=== PATIENT | female | born 1990 | race Caucasian/White ===

== ENCOUNTER 2023-02-22 10:55 | Emergency (ER) | payer OTHER, SELFPAY ==
--- NOTE | ~2023-02-22 | XR_ITS ---
EXAMINATION: XR CHEST CLINICAL INFORMATION: Dizziness COMPARISON: None available. TECHNIQUE: 2 views of the chest were obtained. FINDINGS: The cardiac and mediastinal contours are normal. The lungs are well-inflated. The lungs are clear. No pleural effusion or pneumothorax. Normal bony structures. XR/XR chest 2V IMPRESSION: Well-inflated lungs.
[2023-02-22 11:11] VITALS: BP 105/51; BP 105/61; PULSE 78; PULSE 81; RESP 16; TEMP 36.8; O2SAT 100; BMI 15.0
--- NOTE | 2023-02-22 11:50 | ECG_ITS ---
Test Reason : DIZZINESS Blood Pressure : / mmHG Vent. Rate : 071 BPM Atrial Rate : 071 BPM P-R Int : 146 ms QRS Dur : 082 ms QT Int : 394 ms P-R-T Axes : 076 084 060 degrees QTc Int : 428 ms Normal sinus rhythm with sinus arrhythmia Normal ECG No previous ECGs available Referred By: Yousif Caal Electronically Signed By:MIRIAM DUQUE
--- NOTE | 2023-02-22 12:01 | ED_ITS ---
HPI - Dizziness General Chief Complaint: Dizziness Stated Complaint: DIZZY,FELT FAINT,LOW BP 87/50 PER EMS Time Seen by Provider: 02/22/23 11:41 Source: patient Mode of arrival: ambulatory Limitations: no limitations History of Present Illness HPI Narrative: 32-year-old female otherwise healthy no previous visits to this emergency department presents emergency department after feeling lightheaded. She states she is currently on her menses. She states that when she is on her menses she does get lightheaded she had the same problem last month she has been on control in the past. She denies any falls or injuries she denies losing consciousness she admits to not eating as much she normally does this morning she denies chest pain cough fever and she states she is back to her baseline at this time. It is very warm she states she is doing outside event today. When this all happened. MD elicited complaint: near syncope Related Data Allergies Allergy/AdvReac Type Severity Reaction Status Date / Time No Known Allergies Allergy Unverified 02/29/20 18:12 Review of Systems 2 Review of Systems: Review of systems: General: Patient denies any fever chills recent illness or falls Musculoskeletal: Denies back pain or body aches or other injuries HEENT: denies headache, runny nose, ear pain Respiratory: denies shortness of breath, cough Cardiovascular: no chest pain or palpitations : denies dysuria, frequency Abdomen: no nausea vomiting denies abdominal pain Extremities: no swelling, no pain Skin: no diaphoresis Yes all other systems are reviewed and are negative PMFSH Social History Social History Alcohol intake: never Smoked in Last 30 Days: No Use of substances other than those prescribed or required for medical reasons: No Advance Directives: No Advance Directives Information Provided: No Patient : No Physical Exam 2 Vital Signs: Vital Signs: Last Vital Signs Temp 98.2 F 02/22/23 11:11 Pulse 81 02/22/23 11:11 Resp 16 02/22/23 11:11 BP 105/61 02/22/23 11:11 Pulse Ox 100 02/22/23 11:11 O2 Del Method Room Air 02/22/23 11:11 BMI result Body Mass Index 15.0 Neurological exam: CN II- XII tested. Patient is alert and oriented to person place and time. Patient has no dysphagia or dysarthia, denies good vision in all four vision parker no nystagmus on exam, good strength to upper and lower extremities with normal reflexes to brachioradialis, wrist, patella and achilles. Negative romberg, good finger to nose and heel to black. General: Well-appearing well-nourished in no signs of distress HEENT: Normocephalic atraumatic Neck: No signs of JVD, no masses no tenderness or lymphadenopathy Cardiovascular: Regular rate and rhythm Respiratory: Clear to auscultation bilaterally Abdomen: Soft nontender no masses Extremities: Normal pedal pulses no signs of edema Skin: Dry warm no rashes Back: No tenderness full ROM Course Course Course Narrative: Patient continues to appear well labs are normal patient given a L of fluid here and was also benign I will send home with PCP follow-up. Medications Administered Discontinued Medications Generic Name Dose Route Start Last Admin Trade Name Freq PRN Reason Stop Dose Admin Sodium Chloride 1,000 mls @ 999 mls/hr 02/22/23 12:00 02/22/23 13:19 Ns IV 02/22/23 13:00 0 mls/hr .Q1H1M [facility] Infusion Medical Decision Making Medical Decision Making [facility] Narrative: Patient is here for nursing patient lose consciousness I will check some labs and reassess. Patient screened to take her status needs to be checked I will check his CBC BMP give patient fluids and reassess Differential Diagnosis Differential Diagnoses: The differential diagnosis associated with the presentation includes Syncope electrolyte abnormality dysrhythmia less likely any neuro symptoms patient is currently admits is doing she is . Admission/Observation Consideration of admission/observation: Escalation of care including admission/observation considered Lab Data [facility] Lab Attestation statement: I reviewed the patient's lab results. 02/22/23 12:03 02/22/23 12:03 Labs: Lab Results 02/22/23 Range/Units 12:03 WBC 14.0 H (4.8-10.8) X10*3/uL RBC 3.87 L (4.20-5.50) X10*6/uL Hgb 13.2 (12.0-16.0) g/dl Hct 38.7 (37.0-47.0) % MCV 100.0 H (80.0-98.0) fL MCH 34.1 H (27.0-33.0) pg MCHC 34.1 (31.0-35.0) g/dl RDW 11.8 (11.0-16.0) % Plt Count 299 (160-400) X10*3/uL MPV 9.5 (9.4-12.3) fL Immature Gran % (Auto) 0.4 (0.0-0.4) % Neut % (Auto) 83.6 H (45-73) % Lymph % (Auto) 8.1 L (20-40) % [place] % (Auto) 6.9 (2-11) % Eos % (Auto) 0.4 (0-4) % Baso % (Auto) 0.6 (0-2) % Lymph # (Auto) 1.1 L (1.2-4.9) X10*3/uL [place] # (Auto) 1.0 (0.1-1.2) X10*3/uL Eos # (Auto) 0.1 (0.0-0.4) X10*3/uL Baso # (Auto) 0.1 (0.0-0.2) X10*3/uL Abs Immat Gran (auto) 0.05 H (0.00-0.03) X10*3/uL Absolute Neuts (auto) 11.7 H (2.0-8.3) x10*3/uL Absolute Nucleated RBC 0.000 (0.0-0.012) X10*3/uL Nucleated RBC % (auto) 0.0 (0.0-0.2) /100WBC Sodium 140 (135-145) mmol/L Potassium 3.7 (3.3-5.1) mmol/L Chloride 110 H (96-108) mmol/L Carbon Dioxide 25 (22-29) mmol/L Anion Gap 9 L (12-20) BUN 11 (9-16) mg/dL Creatinine 0.70 (0.5-1.4) mg/dL Estim Creat Clear Calc 73.6 Estimated GFR > 60 Random Glucose 97 (60-115) mg/dL Calcium 9.7 (8.4-10.2) mg/dL Total Bilirubin 0.5 (0.0-1.0) mg/dL Direct Bilirubin 0.2 (0.0-0.5) mg/dL AST 19 (5-31) U/L ALT 14 (0-31) U/L Alkaline Phosphatase 44 (39-117) U/L Total Protein 6.5 (6.5-8.0) g/dL Albumin 4.0 (3.5-5.0) g/dL Lipase 29 (8-78) U/L Independent Interpretation I performed an independent interpretation of an: EKG and Plain X-Ray Radiology Impression Discussion of test interpretation with radiology: I have reviewed the radiologist's reading. Independent Historian Clinical information obtained from an independent historian. History obtained from or confirmed by: Parent External Record Review No previous records to review Discharge Plan Discharge Clinical Impression: Near syncope Patient Disposition: Home, Self-Care Instructions: Near Syncope (ED) Additional Instructions: You were seen today in emergency department for almost passing out. You had labs and x-ray as well as an EKG which were all normal. If you have worsening chest pain shortness of breath fever or any other concerns please do not hesitate to come back to the emergency department.
[2023-02-22 12:09] LABS: MANUAL DIFF FLAG NO
[2023-02-22 12:11] LABS: Basophils Absolute Auto 0.1 X10*3/uL (0.0-0.2); Basophils Percent Auto 0.6 % (0-2); Eosinophils Absolute Auto 0.1 X10*3/uL (0.0-0.4); Eosinophils Percent Auto 0.4 % (0-4); Hematocrit 38.7 % (37.0-47.0); Hemoglobin 13.2 g/dl (12.0-16.0); Imm Gran Abs Auto 0.05 X10*3/uL (0.00-0.03); Imm Gran Pct Auto 0.4 % (0.0-0.4); Lymphocytes Absolute Auto 1.1 X10*3/uL (1.2-4.9); Lymphocytes Percent Auto 8.1 % (20-40); Mean Corpuscular HGB Conc 34.1 g/dl (31.0-35.0); Mean Corpuscular Hemoglobin 34.1 pg (27.0-33.0); Mean Platelet Volume 9.5 fL (9.4-12.3); Monocytes Percent Auto 6.9 % (2-11); Neutrophils Absolute Auto 11.7 x10*3/uL (2.0-8.3); Neutrophils Percent Auto 83.6 % (45-73); Platelet Count 299 X10*3/uL (160-400); Red Blood Count 3.87 X10*6/uL (4.20-5.50); Red Cell Distribution Width 11.8 % (11.0-16.0)
[2023-02-22 12:30] LABS: Alanine Aminotransferase 14 U/L (0-31); Alkaline Phosphatase 44 U/L (39-117); Anion Gap 9 (12-20); Aspartate Amino Transferase 19 U/L (5-31); Bilirubin Direct 0.2 mg/dL (0.0-0.5); Bilirubin Total 0.5 mg/dL (0.0-1.0); Blood Urea Nitrogen 11 mg/dL (9-16); Calcium 9.7 mg/dL (8.4-10.2); Carbon Dioxide 25 mmol/L (22-29); Chloride 110 mmol/L (96-108); Creatinine Clr Calc Pharmacy 73.6; Estimated Glomerular Filt Rate > 60; Glucose Random 97 mg/dL (60-115); Lipase 29 U/L (8-78); Potassium 3.7 mmol/L (3.3-5.1); Sodium 140 mmol/L (135-145); Total Protein 6.5 g/dL (6.5-8.0)
[2023-02-22] MEDS: 0.9 % Sodium Chloride 1,000 ML 999 ML IV (12:32)
[2023-02-22 14:08] VITALS: BP 93/55; PULSE 73; RESP 16; O2SAT 100
== END 2023-02-22 14:16 | disposition home or self-care (01) ==
PROVIDERS: Emergency Provider Student in an Organized Health Care Education/Training Program
DX: R55 Syncope and collapse (principal); R42 Dizziness and giddiness; I49.8 Other specified cardiac arrhythmias; Z79.899 Other long term (current) drug therapy
CPT/HCPCS: 36415; 71046; 80048; 80076; 83690; 85025; 93005; 96360; 99284; 99285

== ENCOUNTER 2023-09-02 10:22 | Outpatient (AMB) | payer OTHER, SELFPAY ==
--- NOTE | 2023-09-02 10:25 | A.OFFPC_ITS ---
Vital Signs 09/02/23 10:27 Height 5 ft 6 in Weight 88 lb 2 oz BMI 14.2 BP 123/58 L Blood Pressure Location Rt brachial Position Sitting Respiration 14 Pulse 110 H Pulse Source Pulse Oximeter Temp 97.5 F Temp Source Temporal Artery Scan Pulse Oximetry (%) 99 Oxygen Delivery Method Room Air Intake Visit Reasons: FU ARFID Intake Note: Patient is here for a follow up. No concerns. Patient did not warp picker Fluoxetine, did not start yet Collections Rep Required: No Accompanied by: Self / Same As Patient Allergies No Known Allergies Allergy (Verified 09/02/23 10:49) Medication List - Last Reconciled 09/02/23 by GRANT Baker fluoxetine (Prozac) 10 mg PO DAILY Tobacco use date assessed: 08/20/23 HPI HPI Comments History of Present Illness Details 32 y/o F with MDD, AFUA, ARFID Specialists: Counselor Nutrition referral placed Health Maintenance: Pap reports UTD Here today for close fu: Starts by telling me she felt very on the spot and uncomfortable about the convo regarding my concern for low BMI at last visit. Though she is appreciative wanted me to know that. Explains her wt is low because she has been sick and is very busy at work. Was contacted by Nutrition- [employer] scheduled September 17 2023. Did not warp picker prozac yet. Feels too busy. Doesn't want to get labs done, too busy. Offered to have her get done right now and she declined stating she has to watch the clock and get back to work. Denies SI/HI. Remains active with counselor. [facility] Medical History (Updated 09/02/23 @ 10:58 by GRANT Baker) Anxiety Depression Surgical History (Updated 08/20/23 @ 15:46 by Nikkie Adame CMA) No pertinent past surgical history Family History (Updated 08/20/23 @ 15:47 by Nikkie Adame CMA) Mother Mental health disorder Brother Mental health disorder Social History (Updated 08/20/23 @ 15:44 by Nikkie Adame CMA) Household Members: Family Housing: House 75 years or older and lives alone: No Alcohol intake: never Patient Tobacco Use Status: Never used Tobacco e-Cigarette/Vaping Use: Never Used service: No Current occupational status: employed 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 Depression Screening Interpretation: Positive Depression Screening Follow-up: Existing condition, In treatment and New Medication prescribed Depression Screening Done: Yes Source: Developed by Drs. Michael Marie, Filemon Ko and colleagues, with an educational kuldeep from [employer] Thrive Questionnaire Date Thrive assessed: 08/20/23 Currently or been in a relationship where the following occur: no concerns reported THRIVE Score: 0 AFUA-7 AMB Questionnaire AFUA-7 Date AFUA - 7 assessed: 08/20/23 Source: Developed by Drs. Michael Marie, Gabby Ellis, Filemon Castellanos and colleagues, with an educational kuldeep from [employer] Review of Systems Const All systems reviewed & are unremarkable except as noted in HPI and below Physical exam (Primary Care) Vital Signs: Last Vital Signs Temp 97.5 F 09/02/23 10:27 Pulse 110 H 09/02/23 10:27 Resp 14 09/02/23 10:27 BP 123/58 L 09/02/23 10:27 Pulse Ox 99 09/02/23 10:27 Oxygen Delivery Method Room Air 09/02/23 10:27 BMI result Body Mass Index 14.2 BMI Assessment/Plan discussion: Low BMI Low, Plan discussed: dietary Tobacco/Smoking Status: Tobacco use Status Tobacco use date assessed 08/20/23 09/02/23 10:27 Patient Tobacco Use Status Never used Tobacco 09/02/23 10:27 e-Cigarette/Vaping Use Never Used 09/02/23 10:27 Depression Screening Interpretation: Positive Depression Screening Follow-up: Existing condition, In treatment and New Medication prescribed Thrive Assessment: Date of Thrive Assessment Date Thrive assessed 08/20/23 09/02/23 10:27 Currently or been in a relationship where the following occur: no concerns reported Const Other: Extremely thin and frail Mucous membranes dry Lung sounds clear To auscultation bilat regular rate and rhythm Abdomen is soft nontender bowel sounds within normal limits Mood is guarded & anxious Assessment and Plan Assessment & Plan (1) Avoidant-restrictive food intake disorder (ARFID): Comment: Referred to an eating disorder crop nutrition scientist - [facility]. Initial intake appt 09/17/23 Labs ordered & pending. Encouraged to get done. Already active with a counselor. She would like to proceed with small steps to start working on recovery. We will bring her back in 2-3 week. I have asked for her to make an appointment with a serials librarian and get her blood work done before the next appointment. I have also told her that if she does not feel like she can do these things that she should still come to follow up with me so that I can continue to guidance support her. She was very grateful for having this conversation. Code(s): F50.82 - Avoidant/restrictive food intake disorder (2) MDD (major depressive disorder), recurrent episode: Comment: start of prozac 10 mg QD. Has not picked up yet. Requested she try to make time to do this. Active w/ counselor Code(s): F33.9 - Major depressive disorder, recurrent, unspecified Qualifiers: Major depression episode severity: severe Psychotic features: without psychotic features Qualified Code(s): F33.2 - Major depressive disorder, recurrent severe without psychotic features (3) AFUA (generalized anxiety disorder): Comment: see MDD Code(s): F41.1 - Generalized anxiety disorder Plan: This note is constructed using voice recognition software. While every effort has been made to ensure accuracy in educational therapy teacher, still errors may have been included Sometimes, these errors may affect the content or meaning of the given sentence . Total time spent caring for the patient today was 40 minutes. This includes time spent before the visit reviewing the chart, time spent during the visit, and time spent after the visit on documentation Plan RTO IN 2-3 WEEKS FOR CLOSE F/U, REVIEW OF LABS AND CONSULT W/ EDGE TRIMMING MACHINE OPERATOR Coding Level of Care Code Est Pt Level 5 (11767) Diagnoses Avoidant-restrictive food intake disorder (ARFID) F50.82 Severe episode of recurrent major depressive disorder, without psychotic features F33.2 Major depression episode severity: severe Psychotic features: without psychotic features AFUA (generalized anxiety disorder) F41.1
[2023-09-02 10:27] VITALS: BP 123/58; PULSE 110; RESP 14; TEMP 36.4; O2SAT 99; BMI 14.2
== END 2023-09-02 10:54 | disposition home or self-care (01) ==
PROVIDERS: Visit Provider Nurse Practitioner Family
DX: F50.82 Avoidant/restrictive food intake disorder (principal); F33.2 Major depressive disorder, recurrent severe without psychotic features; F41.1 Generalized anxiety disorder
CPT/HCPCS: 99215

== ENCOUNTER 2023-10-01 11:17 | Outpatient (AMB) | payer OTHER, SELFPAY ==
[2023-10-01 11:41] VITALS: BP 100/40; PULSE 91; O2SAT 98; BMI 14.1
--- NOTE | 2023-10-01 11:41 | MHC.PC.OV ---
Vital Signs 10/01/23 11:41 Height 5 ft 6 in Weight 87 lb 2 oz BMI 14.1 BP 100/40 L Blood Pressure Location Lt brachial Position Sitting Pulse 91 Pulse Source Pulse Oximeter Pulse Oximetry (%) 98 Oxygen Delivery Method Room Air Intake Visit Reasons: fu ARFID/MDD Allergies No Known Allergies Allergy (Verified 10/01/23 11:46) Medication List - Last Reconciled 10/01/23 by Taylor Ken, MEDICAL CLERK-BC fluoxetine (Prozac) 10 mg PO DAILY Tobacco use date assessed: 08/20/23 Dental Screening Dental Screen Date: 08/20/23 HPI HPI Comments History of Present Illness Details Here today to fu. 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 Specifically suicidal thoughts. Admits that she has passive suicidal thoughts without a plan. She remains active with a counselor. Had telephone consult w/ release of information specialist, this was about 2 weeks ago Recommended to start Boost or something like that, states she has not been able to find this. Has appointment next Wednesday with her Had another episode of dysfunctional uterine bleeding having panic attacks at work; to help she worked from home. She has lost weight since her last office visit. The weight recorded today was with a leather jacket shoes and fully dressed. The past that she usually wears which has several layers underneath are falling off of her today and she asked to hold them up. Her lips are dry and cracked. She looks extremely frail and ill. We had a donna conversation about the need for her to enter treatment. Discussed her avoidance in addressing the issues had on and coming up with several reasons why she can not do things such as start medications or get her labs done. Advised to her that with her state of health, which is extreme malnutrition in the setting of anorexia nervosa she does require inpatient treatment. She states that she does not want to as she is afraid of what people will think and she is afraid about losing her job. Discussed FMLA and the jaw protection around there. Today she does not deny that she does have anorexia. She denies any new behaviors such as chewing and spitting, use of diuretics or laxatives, or vomiting. She denies any self-harm. [facility] Medical History (Updated 10/01/23 @ 13:01 by RIGOBERTO Baker) Anxiety Depression Surgical History (Updated 08/20/23 @ 15:46 by Nikkie Adame CMA) No pertinent past surgical history Family History (Updated 08/20/23 @ 15:47 by Nikkie Adame CMA) Mother Mental health disorder Brother Mental health disorder Social History (Updated 08/20/23 @ 15:44 by Nikkie Adame CMA) Household Members: Family Housing: House 75 years or older and lives alone: No Alcohol intake: never Patient Tobacco Use Status: Never used Tobacco e-Cigarette/Vaping Use: Never Used service: No Current occupational status: employed Current occupation: [employer] Current occupational exposures/hazards: No Sexual orientation: Unable to collect Gender identity: Unable to collect Cognitive needs: No Hearing needs: No Vision needs: No Questionnaire PHQ-9 Over the last 2 weeks, how often have you been bothered by any of the following problems? Depression Screening Interpretation: Positive Depression Screening Follow-up: Existing condition, In treatment and New Medication prescribed Depression Screening Done: Yes Source: Developed by Drs. Michael Marie, Filemon Ko and colleagues, with an educational kuldeep from [employer]. Thrive Questionnaire Date Thrive assessed: 08/20/23 Currently or been in a relationship where the following occur: no concerns reported THRIVE Score: 0 AFUA-7 AMB Questionnaire AFUA-7 Date AFUA - 7 assessed: 08/20/23 Source: Developed by Drs. Michael Marie, Filemon Ko and colleagues, with an educational kuldeep from [employer]. Physical exam (Primary Care) Vital Signs: Last Vital Signs Pulse 91 10/01/23 11:41 BP 100/40 L 10/01/23 11:41 Pulse Ox 98 10/01/23 11:41 Oxygen Delivery Method Room Air 10/01/23 11:41 BMI result Body Mass Index 14.1 BMI Assessment/Plan discussion: Low BMI Low, Plan discussed: dietary Tobacco/Smoking Status: Tobacco use Status Tobacco use date assessed 08/20/23 10/01/23 11:42 Patient Tobacco Use Status Never used Tobacco 10/01/23 11:42 e-Cigarette/Vaping Use Never Used 10/01/23 11:42 Depression Screening Interpretation: Positive Depression Screening Follow-up: Existing condition, In treatment and New Medication prescribed Thrive Assessment: Date of Thrive Assessment Date Thrive assessed 08/20/23 10/01/23 11:42 Currently or been in a relationship where the following occur: no concerns reported Const Other: Extremely thin and frail Mucous membranes dry, lips cracked, eyes sunken Lung sounds clear To auscultation bilat regular rate and rhythm Abdomen is soft nontender bowel sounds within normal limits Mood is guarded & anxious Assessment and Plan Assessment & Plan (1) Anorexia nervosa: Comment: Referred to an eating disorder nutrition consultant - [facility]. Initial intake appt 09/17/23 Labs ordered & pending. Encouraged to get done. She refuses. Already active with a counselor. She would like to proceed with small steps to start working on recovery. We will bring her back in 2-3 week. I have asked her to get FMLA paperwork from her employer, call her insurance company to find out in network inpatient eating disorder center's, start her Prozac and drink boost as advised by gi asst. . I have also told her that if she does not feel like she can do these things that she should still come to follow up with me so that I can continue to guidance support her. She was very grateful for having this conversation. Code(s): F50.00 - Anorexia nervosa, unspecified Plan This note is constructed using voice recognition software. While every effort has been made to ensure accuracy in forgeman helper, still errors may have been included Sometimes, these errors may affect the content or meaning of the given sentence . Total time spent caring for the patient today was 90 minutes. This includes time spent before the visit reviewing the chart, time spent during the visit, and time spent after the visit on documentation Upon leaving she had a panic attack. This did require her to return to the exam room where additional 30 minutes was spent consulting her to ensure that she was safe and okay to drive home. She did say that she had a friend that she could call and speak to on her ride back home. Patient Instructions: Ask employer about FMLA and get the forms Call your insurance company and find out which inpatient eating disorder clinics are covered Please start prozac Coding Level of Care Code Est Pt Level 5 (87027) Complex EM visit Add On G2211 Diagnoses Anorexia nervosa F50.00
== END 2023-10-01 12:31 | disposition home or self-care (01) ==
PROVIDERS: Visit Provider Nurse Practitioner Family
DX: F50.00 Anorexia nervosa, unspecified (principal)
CPT/HCPCS: 99215; 99417; G2211

== ENCOUNTER 2023-10-22 15:23 | Outpatient (AMB) | payer OTHER, SELFPAY ==
--- NOTE | 2023-10-22 15:28 | A.OFFPC_ITS ---
Vital Signs 10/22/23 15:29 Height 5 ft 6 in Weight 86 lb BMI 13.9 BP 103/57 L Blood Pressure Location Rt brachial Position Sitting Respiration 12 Pulse 75 Temp 98.7 F Temp Source Oral Pulse Oximetry (%) 99 Oxygen Delivery Method Room Air Intake Visit Reasons: 2 weeks w/ me fu 30 min Intake Note: Follow up Easement Worker Required: No Is last menstrual period known: Yes Last menstrual period: 10/27/23 Allergies No Known Allergies Allergy (Verified 10/22/23 16:01) Medication List - Last Reconciled 10/22/23 by GRANT Baker fluoxetine (Prozac) 10 mg PO DAILY Tobacco use date assessed: 10/22/23 Dental Screening Dental Screen Date: 08/20/23 HPI HPI Comments History of Present Illness Details Here today for a close 2 week f/u TElls me of a panick attack after last visit upset after last appt cont to use work as an excuse to not follow through on recommendations States she's drinking ensure drinks Did not start prozac i dont have anxiety any more Feels like everything she's trying is not enough had 2nd appt with director of media since last visit, really likes Nelia, next appt this month. Discussed safe foods - cake had a piece today ice cream, too Unsafe - home made burgers from Dad they're so huge, if they were tiny or at least a better size then maybe i could eat it Feels guilted and shamed when she doesnt finish her food or cant eat; dad rolls his eyes or sighs. Mom does not respond. cont w/ counselor. Finds this helpful I have asked her to get FMLA paperwork from her employer, call her insurance company to find out in network inpatient eating disorder center's, start her Prozac and drink boost as advised by director of media. [facility] Medical History (Updated 10/22/23 @ 16:04 by GRANT Baker) Anxiety Depression Surgical History (Updated 08/20/23 @ 15:46 by Nikkie Adame CMA) No pertinent past surgical history Family History (Updated 08/20/23 @ 15:47 by Nikkie Adame CMA) Mother Mental health disorder Brother Mental health disorder Social History (Updated 08/20/23 @ 15:44 by Nikkie Adame [facility]) Household Members: Family Housing: House 75 years or older and lives alone: No Alcohol intake: never Patient Tobacco Use Status: Never used Tobacco e-Cigarette/Vaping Use: Never Used service: No Current occupational status: employed 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 Michael Marie, Gabby Ellis, Filemon Castellanos and colleagues, with an educational kuldeep from [employer]. Review of Systems Const All systems reviewed & are unremarkable except as noted in HPI and below Physical exam (Primary Care) Vital Signs: Last Vital Signs Temp 98.7 F 10/22/23 15:29 Pulse 75 10/22/23 15:29 Resp 12 10/22/23 15:29 BP 103/57 L 10/22/23 15:29 Pulse Ox 99 10/22/23 15:29 Oxygen Delivery Method Room Air 10/22/23 15:29 BMI result Body Mass Index 13.9 BMI Assessment/Plan discussion: Low BMI Low, Plan discussed: dietary Tobacco/Smoking Status: Tobacco use Status Tobacco use date assessed 10/22/23 10/22/23 15:33 Patient Tobacco Use Status Never used Tobacco 10/22/23 15:33 e-Cigarette/Vaping Use Never Used 10/22/23 15:33 Thrive Assessment: Date of Thrive Assessment Date Thrive assessed 08/20/23 10/22/23 15:33 Const Other: Extremely thin and frail Mucous membranes dry, lips cracked, eyes sunken Lung sounds clear To auscultation bilat regular rate and rhythm Abdomen is soft nontender bowel sounds within normal limits Mood is guarded & anxious Assessment and Plan Assessment & Plan (1) Anorexia nervosa: Comment: Referred to an eating disorder nutrition partner - [facility]. Initial intake appt 09/17/23 Labs ordered & pending. Encouraged to get done. She refuses. Already active with a counselor. She would like to proceed with small steps to start working on recovery. We will bring her back in 2-3 week. She was not able to do the following: I have asked her to get FMLA paperwork from her employer, call her insurance company to find out in network inpatient eating disorder center's, start her Prozac and drink boost as advised by director of media. At this visit, asked her to try again to get labs and start prozac. She wishes to come up w a list of foods that she should eat QD as advised by Geological Science Teacher to help her gain weight and cont to drink protein shakes. Once again, I have also told her that if she does not feel like she can do these things that she should still come to follow up with me so that I can continue to guidance support her. She was very grateful for having this conversation. Code(s): F50.00 - Anorexia nervosa, unspecified (2) AFUA (generalized anxiety disorder): Comment: see MDD Code(s): F41.1 - Generalized anxiety disorder (3) MDD (major depressive disorder), recurrent episode: Comment: start of prozac 10 mg QD. has picked up but not started yet. Requested she try to make time to do this. Active w/ counselor Code(s): F33.9 - Major depressive disorder, recurrent, unspecified Qualifiers: Major depression episode severity: severe Psychotic features: without psychotic features Qualified Code(s): F33.2 - Major depressive disorder, recurrent severe without psychotic features Plan This note is constructed using voice recognition software. While every effort has been made to ensure accuracy in administrative supervisor, still errors may have been included Sometimes, these errors may affect the content or meaning of the given sentence . Total time spent caring for the patient today was 90 minutes. This includes time spent before the visit reviewing the chart, time spent during the visit, and time spent after the visit on documentation Patient Instructions: - start prozac come up w food list cont ensure/boost get labs done come back and see me in 3-4 weeks, sooner as needed. Coding Level of Care Code Est Pt Level 5 (21623) Diagnoses Anorexia nervosa F50.00 AFUA (generalized anxiety disorder) F41.1 Severe episode of recurrent major depressive disorder, without psychotic features F33.2 Major depression episode severity: severe Psychotic features: without psychotic features
[2023-10-22 15:29] VITALS: BP 103/57; PULSE 75; RESP 12; TEMP 37.1; O2SAT 99; BMI 13.9
== END 2023-10-22 16:14 | disposition home or self-care (01) ==
PROVIDERS: Visit Provider Nurse Practitioner Family
DX: F50.00 Anorexia nervosa, unspecified (principal); F41.1 Generalized anxiety disorder; F33.2 Major depressive disorder, recurrent severe without psychotic features
CPT/HCPCS: 99215; 99417

== ENCOUNTER 2023-12-03 10:31 | Outpatient (AMB) | payer OTHER, SELFPAY ==
--- NOTE | 2023-12-03 10:37 | MHC.PC.OV ---
Vital Signs 12/03/23 10:38 Height 5 ft 6 in Weight 85 lb BMI 13.7 BP 104/62 Blood Pressure Location Rt brachial Position Sitting Respiration 14 Pulse 81 Pulse Source Pulse Oximeter Temp 97.6 F Temp Source Temporal Artery Scan Pulse Oximetry (%) 99 Oxygen Delivery Method Room Air Intake Visit Reasons: 3-4 weeks 45 min f/u A.N. Supportive Employment Case Manager Required: No Accompanied by: Self / Same As Patient Allergies No Known Allergies Allergy (Verified 12/03/23 11:10) Medication List - Last Reconciled 12/03/23 by Taylor Ken, COLOR ROOM ATTENDANT-BC fluoxetine (Prozac) 10 mg PO DAILY Tobacco use date assessed: 10/22/23 Dental Screening Dental Screen Date: 08/20/23 HPI HPI Comments History of Present Illness Details Here today to fu on AN Had fu with Medicaid Analyst, 3rd visit - has future one scheduled but unsure of date still not taking Prozac no dice cont to refuse to get FMLA Cont to go to counseling biweekly Still did not get labs im more comfortable in [place] Cont to lose weight Eating 1 piece of salmon per week Eats ice cream or cake only at events -- i am unsure of the amounts Ensure reports still doing this but doesnt like ensure plus does not have Ensure and will try to get Begrudgingly appreciates my check ins even if she doesnt make changes Plan EKG WNL I cont to be very concerned however she does not want to take the next steps in recovery @ this time, yet does admit that she likes the accountablity from our appts. Aware anorexia is a deadly disease. RTO in February for routine f/u, sooner as needed Try hard to get labs done and consider starting prozac. 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 Michael Marie, Gabby Ellis, Filemon Castellanos and colleagues, with an educational kuldeep from [employer]. Review of Systems Const All systems reviewed & are unremarkable except as noted in HPI and below Physical exam (Primary Care) Vital Signs: Last Vital Signs Temp 97.6 F 12/03/23 10:38 Pulse 81 12/03/23 10:38 Resp 14 12/03/23 10:38 BP 104/62 12/03/23 10:38 Pulse Ox 99 12/03/23 10:38 Oxygen Delivery Method Room Air 12/03/23 10:38 BMI result Body Mass Index 13.7 BMI Assessment/Plan discussion: Low BMI Low, Plan discussed: dietary Tobacco/Smoking Status: Tobacco use Status Tobacco use date assessed 10/22/23 12/03/23 10:37 Patient Tobacco Use Status Never used Tobacco 12/03/23 10:37 e-Cigarette/Vaping Use Never Used 12/03/23 10:37 Thrive Assessment: Date of Thrive Assessment Date Thrive assessed 08/20/23 12/03/23 10:37 Const Other: Extremely thin and frail Mucous membranes dry, lips cracked, eyes sunken Lung sounds clear To auscultation bilat regular rate and rhythm Abdomen is soft nontender bowel sounds within normal limits Mood is guarded & anxious Office Procedures EKG Details: NSR with sinus arrythmia [id number], Complete Assessment and Plan Assessment & Plan (1) Anorexia nervosa: Comment: Referred to an eating disorder sports marketing specialist - [facility]. Initial intake appt 09/17/23 Labs ordered & pending. Encouraged to get done. She refuses. Already active with a counselor. She would like to proceed with small steps to start working on recovery. I have asked her to get FMLA paperwork from her employer, call her insurance company to find out in network inpatient eating disorder center's, start her Prozac and drink boost as advised by manager clinical services. Once again, I have also told her that if she does not feel like she can do these things that she should still come to follow up with me so that I can continue to guidance support her. She was very grateful for having this conversation. Code(s): F50.00 - Anorexia nervosa, unspecified Plan: Total time spent caring for the patient today was 45 This note is constructed using voice recognition software. While every effort has been made to ensure accuracy in epic stork specialists, still errors may have been included Sometimes, these errors may affect the content or meaning of the given sentence . minutes. This includes time spent before the visit reviewing the chart, time spent during the visit, and time spent after the visit on documentation Orders: Orders AMB EKG-In Office Today F50.00 - Anorexia nervosa, unspecified Patient Instructions: Plan EKG WNL I cont to be very concerned however she does not want to take the next steps in recovery @ this time, yet does admit that she likes the accountablity from our appts. Aware anorexia is a deadly disease. RTO in February for routine f/u, sooner as needed Try hard to get labs done and consider starting prozac. Coding Level of Care Code Est Pt Level 5 (72707) Complex EM visit Add On G2211 Diagnoses Anorexia nervosa F50.00 CPT Codes EKG - CPT: 87813-[id number], Complete ([id number])
[2023-12-03 10:38] VITALS: BP 104/62; PULSE 81; RESP 14; TEMP 36.4; O2SAT 99; BMI 13.7
== END 2023-12-03 11:54 | disposition home or self-care (01) ==
PROVIDERS: Visit Provider Nurse Practitioner Family
DX: F50.00 Anorexia nervosa, unspecified (principal)
CPT/HCPCS: 93000; 99215; G2211